=== PATIENT | male | born 1995 | race Caucasian/White ===

== ENCOUNTER 2020-02-11 07:52 | Emergency (ER) | payer SELFPAY ==
[2020-02-11 07:57] VITALS: BP 134/86
--- NOTE | 2020-02-11 10:24 | ER Document Report ---
ED Oral Problem - General Chief Complaint: Toothache Stated Complaint: TOOTH PAIN Time Seen by Provider: 02/11/20 10:11 Primary Care Provider: [facility] [Provider Group] - Follow up as needed LIS[facility] CORRAL DDS [NO LOCAL MD] - Follow up as needed Mode of Arrival: Ambulatory Information source: Patient Notes: Patient is a 24-year-old male comes emergency room complaining of left-sided dental pain both upper and lower. Patient states his back was in teeth are coming in are cracked and decaying and started hurting him 2 days ago. He went through the same thing with the right side approximately 6 months ago but those are stopped hurting him. Patient is requesting a dental block in the left lower area secondary to pain and discomfort. Patient denies any other medical problems currently taking no medications and is a smoker. TRAVEL OUTSIDE OF THE [place] IN LAST 30 DAYS: No - HPI Patient complains to provider of: Jaw pain, Toothache. No: Swelling of face, Swelling of jaw Onset: Other - 2 days Onset: Sudden Quality of pain: Achy, Pressure, Sharp, Throbbing Severity: Moderate Pain Level: 3 Context: Fractured tooth Swollen jaw/face: Mild Associated symptoms: None Worsened by: Heat Relieved by: Nothing Similar symptoms previously: Yes Recently seen / treated by doctor/dentist: No - Related Data Allergies/Adverse Reactions: codeine Allergy (Verified 02/11/20 08:18) Past Medical History - General Information source: Patient - Social History Smoking Status: Current Every Day Smoker Cigarette use (# per day): Yes Chew tobacco use (# tins/day): No Smoking Education Provided: Yes Frequency of alcohol use: None Drug Abuse: None Lives with: Friend Family History: Reviewed & Not Pertinent Review of Systems - Review of Systems Constitutional: No symptoms reported EENT: Dental problem Cardiovascular: No symptoms reported Respiratory: No symptoms reported Gastrointestinal: No symptoms reported Genitourinary: No symptoms reported Male Genitourinary: No symptoms reported Musculoskeletal: No symptoms reported Skin: No symptoms reported Hematologic/Lymphatic: No symptoms reported Neurological/Psychological: No symptoms reported -: Yes All other systems reviewed and negative Physical Exam - Vital signs Vitals: Temp Pulse Resp BP Pulse Ox 98.0 F 52 L 14 134/86 H 100 02/11/20 07:56 02/11/20 07:56 02/11/20 07:56 02/11/20 07:56 02/11/20 07:56 Interpretation: Hypertensive - Notes Notes: PHYSICAL EXAMINATION: GENERAL: Patient is a well-nourished well-developed 22-year-old male no apparent distress but does appear uncomfortable. HEAD: Atraumatic, normocephalic. Examination external features did not show any overt swelling to the left side of face. EYES: Pupils equal round and reactive to light, extraocular movements intact, sclera anicteric, conjunctiva are normal. ENT: Examination patient's oral cavity shows extensive dental decay throughout with primary area of concern in the left upper and lower back molar/wisdom tooth. Both teeth are decayed almost to the gumline with noticeable enamel fractures. There is white exudate coming from around the tooth gumline on both the upper and lower area. There is no palpable or fluctuant area in the cheek and gum area. NECK: Normal range of motion, supple without lymphadenopathy LUNGS: Breath sounds clear to auscultation bilaterally and equal. No wheezes rales or rhonchi. HEART: bradycardic rhythm without murmurs NEUROLOGICAL: Normal speech, normal gait. Normal sensory, motor exams PSYCH: Normal mood, normal affect. SKIN: Warm, Dry, normal turgor, no rashes or lesions noted. Course - Re-evaluation Re-evalutation: 02/11/20 10:23 Procedure note patient requested a dental block on the left lower back tooth. Area as stated in physical examination shows decaying teeth mild erythema surrounds the gum tooth line with noticeable exudate around it. I used a 1-1/2 inch 27-gauge needle with 0.5% Marcaine and 1% lidocaine without epi 1-1/2 mL's total injected just anterior to the back molar in between the cheek and the gumline. Patient tolerated without any consequences and had relief of pain dis comfort. No complications noted - Vital Signs Vital signs: Temp Pulse Resp BP Pulse Ox 98.0 F 52 L 14 134/86 H 100 02/11/20 07:56 02/11/20 07:56 02/11/20 07:56 02/11/20 07:56 02/11/20 07:56 Discharge - Discharge Clinical Impression: Pain, dental Condition: Stable Disposition: HOME, SELF-CARE Instructions: Clindamycin ([facility]), Penicillin V K ([facility]), Toothache ([facility]) Additional Instructions: As have indicated to you I cannot fix this problem ER. You must see a dentist as soon as possible. I am giving you the number to the [facility] you can contact them to see if they can help you. Highly suggest that if not you start looking for a local dentist. Should you have increased swelling discomfort you can return to ER for reevaluation. Prescriptions: Clindamycin HCl 300 mg PO QID #40 capsule Ibuprofen [Ibu] 800 mg PO TID #30 tablet Forms: Elevated Blood Pressure, Smoking Cessation Education Referrals: [facility] CORRAL DDS [NO LOCAL MD] - Follow up as needed [facility] [Provider Group] - Follow up as needed
[2020-02-11] MEDS ORDERED: BUPIVACAINE HCL 0.5 % INJ/PF 30 ML SDV INJ ONE (10:30)
[2020-02-11] MEDS ORDERED: LIDOCAINE 1% INJ (10 MG/ML) 10 ML MDV INJ ONE (10:30)
== END 2020-02-11 10:38 | disposition home or self-care (01) ==
LOC: ER 07:52
DX: K08.89 Other specified disorders of teeth and supporting structures (principal); R68.84 Jaw pain; F17.210 Nicotine dependence, cigarettes, uncomplicated
CPT/HCPCS: 99283; J3490